=== PATIENT | female | born 1965 | race Two or more races ===

== ENCOUNTER 2020-07-20 15:56 | Outpatient (CLI) | payer OTHER | END 2020-07-20 23:59 | disposition home or self-care (01) | LOC: LAB 15:56 | PROVIDERS: ATTEND Specialist | DX: Z01.812 Encounter for preprocedural laboratory examination (principal); Z20.822 Contact with and (suspected) exposure to COVID-19 | CPT/HCPCS: 87426; C9803 ×2; U0003 ==

== ENCOUNTER 2020-07-25 05:40 | Day surgery (SDC) | payer OTHER ==
[2020-07-25] MEDS ORDERED: EPINEPHRINE (1:1000) 1 MG/ML AMPUL ONE (06:18)
[2020-07-25] MEDS ORDERED: methylPREDNISolone ACETATE 80 MG/ML VIAL ONE (06:18)
[2020-07-25] MEDS ORDERED: BUPIVACAINE 0.25% 75 MG/30 ML VIAL ONE (06:18)
[2020-07-25] MEDS ORDERED: MIDAZOLAM HCL 2 MG/2ML VIAL ONE (06:53)
[2020-07-25] MEDS ORDERED: FENTANYL PF 100MCG/2ML AMPUL ONE ×2 (06:53→08:18)
[2020-07-25] MEDS ORDERED: CLINDAMYCIN 900 MG/6 ML VIAL ONE (07:06)
[2020-07-25] MEDS ORDERED: GLYCOPYRROLATE 0.2 MG/ML VIAL ONE (07:31)
--- NOTE | 2020-07-25 07:50 | NUR ---
MS/RN OPENING NOTES RECEIVED REPORT FROM WONG. PATIENT IS OUT IN THE UNIT.
[2020-07-25] MEDS ORDERED: ONDANSETRON HCL/PF 4 MG/2 ML VIAL ONE (08:14)
[2020-07-25] MEDS ORDERED: HYDR-3980 PO (08:25)
--- NOTE | 2020-07-25 08:59 | NUR ---
MS/RN NOTES PATIENT COMEBACK FROM SURGERY, RECEIVED REPORT FROM YANCY OR NURSE. S/P RIGHT SHOULDER ARTHROSCOPY,,DEBRIDEMENT, ACROMIOPLASTY, SLING ON RIGHT SHOULDER, OK TO REMOVE DRESSING WITHIN 48HOURS, NORCO 1-2 TABS EVERY 6HOURS PRN, FALLOW UP WITH DR. DR. MENDOZA WITHIN 1-2 WEEKS AND DISCHARGE WHEN STABLE. NOTED AND CARRIED OUT. INITIAL V/S BP 158/89 P 58 TEMP 97 SAO2 99%. WILL CONTINUE TO MONITOR.
--- NOTE | 2020-07-25 09:29 | NUR ---
MS/RN NOTES DR. MENDOZA ORDER NORCO 325MG 1-2 TABS P.O. EVERY 6HOURS PRN. NOTED AND CARRIED OUT.
[2020-07-25] MEDS ORDERED: HYDROCODONE/APAP 5/325MG TABLET PO PRN ×3 (09:30→11:00)
--- NOTE | 2020-07-25 09:53 | NUR ---
MS/RN NOTES DR. MENDOZA ORDER REGULAR DIET. NOTED AND CARRIED OUT.
--- NOTE | 2020-07-25 17:03 | NUR ---
MS/RN NOTES PATIENT IS ALERT AND ORIENTED X4. PATIENT IN ROOM AIR SATURATION 99%. PATIENT IN NO APPARENT RESPIRATORY DISTRESS NOTED. NO COMPLAINED OF PAIN NOTED. EDUCATIONAL MATERIAL WAS GIVEN AND PATIENT VERBALIZED UNDERSTANDING. PATIENT LEFT THE HOSPITAL IN MEDICALLY STABLE CONDITION. COMMUNITY LIAISON BY THE VIA PRIVATE CAR.
== END 2020-07-25 19:00 | disposition home or self-care (01) ==
LOC: DS 05:40 → UNDOADMIN 05:41 → MED 05:41 → UNDODISIN 13:15 → DS 19:00
PROVIDERS: ATTEND Specialist
DX: M75.41 Impingement syndrome of right shoulder (principal); M65.811 Other synovitis and tenosynovitis, right shoulder
CPT/HCPCS: 29822; 84703; A4217; J0171; J0330; J1040; J1100; J1885; J2250; J2300; J2405 ×2; J2704; J3010; J3490 ×3; G0378